=== PATIENT | female | born 1965 | race Caucasian/White ===

== ENCOUNTER → 2017-01-05 | Outpatient (CLI) | payer BC ==
--- NOTE | 2017-01-05 10:08 | US ---
Thyroid Ultrasound Examination Clinical History: 51 years Female, NONTOXIC SINGLE THYROID NODULE Comparison [None. ] Findings Relatively smooth homogeneous echotexture of the thyroid gland is present with no significant background hyperemia. The right thyroid lobe measures 4.6 x 1.4 x 1.7 cm. The left thyroid lobe measures 3.5 x 1.6 x 1.1 cm. The thyroid isthmus is normal in thickness measuring 0.25 cm. Several circumscribed hypoechoic cysts are seen within the thyroid gland bilaterally. Colloid crystal is seen internally within the cyst. No suspicious calcifications or solid components are present. The largest is within the right thyroid lobe measuring 1.2 cm. No aggressive thyroid lesions are present. 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 No further imaging follow-up is recommended for these findings. Otherwise, normal appearance of the thyroid gland. Electronically signed by: Ronn Gilliam MD 01/05/2017 10:06 AM [facility]
== END | disposition home or self-care (01) ==
LOC: US 10:31
PROVIDERS: ATTEND Family Medicine
DX: Z12.31 Encounter for screening mammogram for malignant neoplasm of breast (principal); E04.1 Nontoxic single thyroid nodule
CPT/HCPCS: 76536; 77063; G0202

== ENCOUNTER → 2019-03-02 | Outpatient (CLI) | payer BC | LOC: GMAE 10:31 | PROVIDERS: ATTEND Family Medicine | DX: Z00.00 Encounter for general adult medical examination without abnormal findings (principal) ==

== ENCOUNTER → 2019-07-24 | Outpatient (CLI) | payer BC | LOC: GMAE 14:25 | PROVIDERS: ATTEND Family Medicine | DX: R21 Rash and other nonspecific skin eruption (principal) ==

== ENCOUNTER → 2019-08-07 | Outpatient (CLI) | payer BC | LOC: LAB.O 14:13 | PROVIDERS: ATTEND Orthopaedic Surgery | DX: Z01.818 Encounter for other preprocedural examination (principal) ==

== ENCOUNTER 2019-08-16 09:00 | Day surgery (SDC) | payer BC ==
[~2019-08-16 09:00] MED LIST: LACTATED RINGERS 1,000 ML ONE; LIDOCAINE 1% 10 ML VIAL INJ ONE; PROPOFOL 200 MG/20 ML VIAL IV ONE; SODIUM CHL 0.9% 100ML MINI-BAG 100 ML IVPB ONE; ceFAZolin SODIUM 1 GM VIAL ONE
[2019-08-16] MEDS ORDERED: LACTATED RINGERS 1,000 ML IVS ONE (10:00)
[2019-08-16] MEDS ORDERED: ceFAZolin SODIUM 1 GM VIAL ONE (10:07)
[2019-08-16] MEDS ORDERED: VANCOMYCIN HCL INJ 1,000 MG VIAL IVPB ONE ×2 (10:07→10:11)
[2019-08-16] MEDS ORDERED: LIDOCAINE 1% 10 ML VIAL INJ ONE ×2 (10:07→10:10)
[2019-08-16] MEDS ORDERED: BUPIVACAINE 0.25% INJ 30 ML VIAL INJ ONE ×2 (10:07→10:10)
[2019-08-16] MEDS ORDERED: ceFAZolin SODIUM 1 GM VIAL IRRIG ONE (10:11)
[2019-08-16] MEDS ORDERED: MIDAZOLAM INJ 2 MG/2 ML VIAL ONE (10:36)
[2019-08-16 13:29] VITALS: BP 136/73; TEMP 97.3; O2SAT 100
--- NOTE | 2019-08-22 11:14 | OP ---
DATE OF PROCEDURE: 08/16/19 PREOPERATIVE DIAGNOSIS: 1. Right carpal tunnel syndrome. POSTOPERATIVE DIAGNOSIS: 1. Right carpal tunnel syndrome. PROCEDURE: 1. Carpal tunnel release. SURGEON: Emmanuel Brooke MD. BAR SUPERVISOR: Jean Bergeron CST, SA-C. ANESTHESIA: Local with sedation. COMPLICATIONS: None. FINDINGS: 1. Narrowing of the median nerve across the carpal tunnel. 2. Thickening of the transverse carpal ligament. INDICATION: Anabell has a history of numbness and symptoms consistent with carpal tunnel syndrome. She has been unable to get relief with conservative measures and has therefore requested operative intervention. After discussing the risks, benefits and alternatives to that, the patient has given informed consent for carpal tunnel release. PROCEDURE: The patient was brought to the Operating Room and placed in the supine position. Sedation was administered and local anesthetic was injected into the operative area under sterile conditions. After the injection of anesthetic, the arm was sterilely prepped and draped. A longitudinal incision was made directly overlying the transverse carpal ligament and blunt dissection was carried down to the ligament. The transverse carpal ligament was sharply transected along its length and a Paisley elevator was used to ensure complete release of the ligament. Once release had been confirmed, the wound was thoroughly irrigated and the wound was closed with Nylon suture. A sterile dressing was placed and the patient was taken to the Day Surgery Unit. POSTOPERATIVE PLAN: The patient has been encouraged to do range of motion of the digits and will followup with us in two days. #[id number] MTDD
== END 2019-08-16 12:00 | disposition home or self-care (01) ==
LOC: AMB 09:00
PROVIDERS: ATTEND Orthopaedic Surgery
DX: G56.01 Carpal tunnel syndrome, right upper limb (principal); J45.909 Unspecified asthma, uncomplicated; Z79.899 Other long term (current) drug therapy
CPT/HCPCS: 01810; 64721; 80307; J0690; J2250; J3370; J3490; J7050; J7120

== ENCOUNTER 2019-09-25 09:16 | Emergency (ER) | payer BC ==
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
[2019-09-25 09:35] VITALS: TEMP 97
[2019-09-25] MEDS ORDERED: KETOROLAC TROMETHAMINE INJ 60 MG/2 ML VIAL IM ONE (09:47)
--- NOTE | 2019-09-25 10:12 | RAD ---
EXAM DESCRIPTION: Foot,Left 3 Views CLINICAL HISTORY: 54 years Female, Left foot pain COMPARISON: None. Findings: 3 view(s)/radiograph(s) Acute comminuted great toe distal phalanx fracture with intra-articular extent. Osteopenia. No other fracture identified. Lisfranc alignment is maintained. Joint spaces are maintained. IMPRESSION: Left foot first digit distal phalanx comminuted fracture as above. Electronically signed by: Bryson Hahn MD 09/25/2019 10:10 AM CDT
[2019-09-25] MEDS ORDERED: ACETAMINOPHEN W/COD #3 TAB 1 EA TAB PO ONE (10:25)
[2019-09-25 10:36] VITALS: BP 137/89; O2SAT 96
== END 2019-09-25 10:39 | disposition home or self-care (01) ==
LOC: ER 09:16
DX: S92.422A Displaced fracture of distal phalanx of left great toe, initial encounter for closed fracture (principal); W22.8XXA Striking against or struck by other objects, initial encounter; Y92.814 Boat as the place of occurrence of the external cause
CPT/HCPCS: 73630; J1885

== ENCOUNTER → 2019-10-05 | Outpatient (CLI) | payer BC ==
--- NOTE | 2019-10-05 15:39 | RAD ---
EXAM DESCRIPTION: Foot,Left 3 Views CLINICAL HISTORY: PAIN IN LEFT FOOT COMPARISON: September 25, 2019. FINDINGS: 3 views of the left foot. Acute complex comminuted fracture crush injury of the distal phalanx first digit/great toe. There is intra-articular extension by less than 20%. No significant fracture displacement. There is hyperemia of the fragment margins as expected. No significant callus formation is present. No other acute injury is evident. No advanced osteoarthritis. The bone density appears borderline low. DEXA imaging of the previously performed. No gross soft tissue findings. IMPRESSION: Stable comminuted fracture of the great toe. Electronically signed by: Ronn Gilliam MD 10/05/2019 3:37 PM CDT
== END ==
LOC: RAD 08:40
PROVIDERS: ATTEND Orthopaedic Surgery
DX: S92.405A Nondisplaced unspecified fracture of left great toe, initial encounter for closed fracture (principal)

== ENCOUNTER → 2020-03-26 | Outpatient (CLI) | payer BC | LOC: GMAJ 14:14 | PROVIDERS: ATTEND Family Medicine | DX: N30.00 Acute cystitis without hematuria (principal) ==